=== PATIENT | male | born 1985 ===

== ENCOUNTER 2023-04-15 16:41 | Emergency (ER) | payer OTHER ==
[~2023-04-15] VITALS: Ht 188 cm; Wt 102.0 kg
[2023-04-15 16:42] VITALS: TEMP 98.3
[2023-04-15] MEDS ORDERED: OMEG-135 PO (16:44)
[2023-04-15] MEDS ORDERED: BUME1TAB34 PO (16:44)
[2023-04-15] MEDS ORDERED: ABAC1TAB15 PO (16:48)
[2023-04-15 18:46] VITALS: BP 148/89; PULSE 81; RESP 16
[2023-04-15] MEDS ORDERED: TRAM-559 PO (18:52)
== END 2023-04-15 19:02 | disposition home or self-care (01) ==
LOC: EMS 16:46
DX: S52.501A Unspecified fracture of the lower end of right radius, initial encounter for closed fracture (principal); X58.XXXA Exposure to other specified factors, initial encounter; Y93.89 Activity, other specified; Y92.89 Other specified places as the place of occurrence of the external cause; Y99.8 Other external cause status
CPT/HCPCS: 29105; 99283